=== PATIENT | male | born 1995 | race Caucasian/White ===

== ENCOUNTER 2018-09-21 20:09 | Emergency (ER) | payer OTHER, BC ==
[~2018-09-21] VITALS: Ht 170.2 cm; Wt 59.0 kg
[2018-09-21 21:05] VITALS: BP 135/88
== END 2018-09-21 21:05 | disposition left against medical advice (07) ==
LOC: M.ERS 20:09
DX: S01.111A Laceration without foreign body of right eyelid and periocular area, initial encounter (principal); W18.00XA Striking against unspecified object with subsequent fall, initial encounter; Y93.89 Activity, other specified; Y92.89 Other specified places as the place of occurrence of the external cause; Y99.8 Other external cause status

== ENCOUNTER 2019-10-26 01:21 | Emergency (ER) | payer BC ==
[~2019-10-26] VITALS: Ht 170.2 cm; Wt 61.2 kg
[2019-10-26] MEDS ORDERED: LEXAPRO20 MG PO (01:49)
[2019-10-26] MEDS ORDERED: GABAPENTIN 100100 MG PO (01:50)
[2019-10-26 02:39] VITALS: BP 128/84
== END 2019-10-26 02:40 | disposition home or self-care (01) ==
LOC: M.ERS 01:21
DX: S50.02XA Contusion of left elbow, initial encounter (principal); L02.01 Cutaneous abscess of face; F41.9 Anxiety disorder, unspecified; F32.9 Major depressive disorder, single episode, unspecified; V29.49XA Motorcycle driver injured in collision with other motor vehicles in traffic accident, initial encounter; Y93.89 Activity, other specified; Y92.89 Other specified places as the place of occurrence of the external cause; Y99.8 Other external cause status

== ENCOUNTER 2020-12-29 18:08 | Inpatient (IN) | payer BC ==
[~2020-12-29] VITALS: Ht 175.3 cm; Wt 64.0 kg
[~2020-12-29 18:08] MED LIST: GABAPENTIN 100100 MG PO; LEXAPRO20 MG PO
[2020-12-29 18:36] LABS: ABSOLUTE BASOPHILS 0.1 thou/uL (0.0-0.2); ABSOLUTE EOSINOPHILS 0.2 thou/uL (0.0-0.7); ABSOLUTE LYMPHOCYTES 2.7 thou/uL (0.8-5.3); ABSOLUTE MONOCYTES 0.5 thou/uL (0.0-1.2); BASOPHILS 0.9 %; EOSINOPHILS 2.5 %; HEMATOCRIT 49.3 % (42.0-52.0); HEMOGLOBIN 16.7 gm/dL (14.0-18.0); LYMPHOCYTES 36.5 %; MCH 32.5 pg (26.0-34.0); MCV 95.8 fL (80.0-100.0); MONOCYTES 6.5 %; MPV 6.6 fl. (7.2-11.1); NUCLEATED RBCS 0 /100WBC; PLATELET COUNT* 290 thou/uL (150-400); POLYS 53.6 %; RBC 5.14 mil/uL (4.50-6.00); RDW-CV 13.2 % (10.5-14.5); WBC 7.4 thou/uL (4.0-11.0)
[2020-12-29 18:43] LABS: URINE BILIRUBIN NEGATIVE (Negative); URINE BLOOD 1+ (Negative); URINE CLARITY CLEAR; URINE COLOR YELLOW; URINE GLUCOSE-RANDOM NEGATIVE (Negative); URINE KETONES NEGATIVE (Negative); URINE LEUKOCYTES-REFLEX NEGATIVE (Negative); URINE NITRITE-REFLEX NEGATIVE (Negative); URINE PROTEIN NEGATIVE (Negative); URINE UROBILINOGEN 0.2 E.U./dl (0.2-1.0)
[2020-12-29 18:43] LABS: CALCIUM 8.2 mg/dL (8.5-10.1); CREATININE 1.1 mg/dL (0.6-1.3); POTASSIUM 3.4 mmol/L (3.5-5.1)
[2020-12-29 18:47] LABS: APTT 31.2 Seconds (25.0-31.3); PROTIME 10.7 Seconds (9.20-11.50)
--- NOTE | 2020-12-29 18:49 | NUR ---
INTUBATION PERFORMED WITH SUCCESS AT 1841, WITH RT AND THIS RN AT BEDSIDE.
[2020-12-29 18:54] LABS: AMP/METHAMP Negative (Negative); BARBITURATES Negative (Negative); BENZODIAZEPINES Negative (Negative); COCAINE Negative (Negative); METHADONE Negative (Negative); OPIATES Negative (Negative); PCP Negative (Negative); THC Negative (Negative)
[2020-12-29 18:54] LABS: ALBUMIN 4.5 g/dL (3.4-5.0); TOTAL BILIRUBIN 0.3 mg/dL (<0.1-1.0)
[2020-12-29 18:57] LABS: SALICYLATE < 2.8 mg/dL (2.8-20.0)
[2020-12-29 18:58] LABS: ACETAMINOPHEN < 2 ug/mL (10-30)
[2020-12-29 18:59] LABS: ALCOHOL 596 mg/dL (<10)
[2020-12-29 19:00] LABS: BACTERIA-REFLEX None Seen /HPF (None Seen); CASTS None Seen /LPF (None Seen); CRYSTALS None Seen /LPF (None Seen); MUCUS None Seen strn/LPF (None Seen); SQUAMOUS NONE SEEN /LPF (0-3); URINE RBC 0-2 Rare /HPF (0-2); URINE WBC-REFLEX None Seen /HPF (0-5)
[2020-12-29 19:23] LABS: BE 2.7 mmol/L (-2 to +3); pH 7.424 (7.340-7.450)
[2020-12-29 19:27] LABS: PO2 > 488.8 mmHg (75.0-100.0)
--- NOTE | 2020-12-29 20:10 | NUR ---
PT AT CT NOTED THAT WAS MOVING INCREASED PROPOFOL TO 20 MCG\KG
[2020-12-29 20:30] VITALS: BP 108/77
--- NOTE | 2020-12-29 20:30 | NUR ---
PT TRANSFERRED TO ICU ROOM 6 WITH THIS RN, RT, AND Doris MONTE RN AT BEDSIDE. REPORT GIVEN ANI.
[2020-12-30] VITALS (22 sets, daily range): BP systolic 102–124; BP diastolic 64–82
[2020-12-30 03:51] LABS: ABSOLUTE BASOPHILS 0.1 thou/uL (0.0-0.2); ABSOLUTE EOSINOPHILS 0.2 thou/uL (0.0-0.7); ABSOLUTE LYMPHOCYTES 3.4 thou/uL (0.8-5.3); ABSOLUTE MONOCYTES 0.6 thou/uL (0.0-1.2); BASOPHILS 0.8 %; EOSINOPHILS 1.8 %; HEMATOCRIT 41.7 % (42.0-52.0); LYMPHOCYTES 33.4 %; MCH 32.8 pg (26.0-34.0); MCHC 34.2 g/dL (28.0-37.0); MCV 95.9 fL (80.0-100.0); MONOCYTES 5.7 %; MPV 6.8 fl. (7.2-11.1); NUCLEATED RBCS 0 /100WBC; PLATELET COUNT* 229 thou/uL (150-400); POLYS 58.3 %; RBC 4.35 mil/uL (4.50-6.00); RDW-CV 13.2 % (10.5-14.5); WBC 10.3 thou/uL (4.0-11.0)
[2020-12-30 03:55] LABS: HEMOGLOBIN 14.3 gm/dL (14.0-18.0)
--- NOTE | 2020-12-30 05:45 | NUR ---
ASSUMED PATIENT CARE AT 2030. PATIENT SEDATED, INTUBATED AND IN BILATERAL SOFT RESTRAINTS. RN ASSESSMENTS COMPLETED CHARTED. SPOKE TO MOTHER, SHE IS AWARE OF PATIENT STATUS. NO CHAGES AT THIS TIME. WILL CONTINUE TO MONITOR.
[2020-12-30 08:05] LABS: CALCIUM 7.9 mg/dL (8.5-10.1); CREATININE 0.9 mg/dL (0.6-1.3); MAGNESIUM 2.3 mg/dL (1.8-2.4); POTASSIUM 3.4 mmol/L (3.5-5.1)
--- NOTE | 2020-12-30 09:03 | EKG ---
[place] [address] ELECTROCARDIOGRAM REPORT Name: ISMAEL CONTRERAS Room: [address] IN M.R.#: [id number] Admission: 12/29/20 Attend Phys: Carlos Moy, Discharge: Date of : 89 Date of Service: 12/29/20 1848 Report #: [id number] THIS REPORT FOR: //name// [facility] ED Test Date: 2020-12-29 Test Time: 18:48:57 Pat Name: ISMAEL CONTRERAS Department: Room: [facility] Gender: M Certified Pharmacy Tech: CCD : 1995 Requested By: Marlon Dill Order Number: [id number] MD: George Schneider Measurements Intervals Howard Rate: 98 P: 90 WY: 155 QRS: 108 QRSD: 90 T: 51 QT: 366 QTc: 468 Interpretive Statements Sinus rhythm Borderline right axis deviation Baseline wander in lead(s) V6 No previous ECG available for comparison Electronically Signed On 12-30-2020 9:03:15 RN CCU by George Schneider [email or web address] <ELECTRONICALLY SIGNED> By: George Schneider MD, FACC 12/30/20 0903 1848 1848 George Schneider MD, [facility] /EPI
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
[2020-12-31] VITALS: BP 109/64
[2020-12-31 03:39] LABS: CALCIUM 9.2 mg/dL (8.5-10.1); CREATININE 0.8 mg/dL (0.6-1.3); POTASSIUM 3.3 mmol/L (3.5-5.1); TOTAL BILIRUBIN 1.2 mg/dL (<0.1-1.0); TOTAL PROTEIN 7.1 g/dL (6.4-8.2)
[2020-12-31 04:24] VITALS: BP 103/72
--- NOTE | 2020-12-31 07:37 | NUR ---
ASSUMED PATIENT CARE AT 1900. ASSESSMENT COMPLETED CHARTED. CARDIAC MONITORING IN PLACE. HOURLY ROUNDING IN PLACE FOR PATIENT SAFETY. FALL PRECAUTIONS IN PLACE FOR PATIENT SAFETY. BED LOCKED AND IN LOWEST POSITION.
[2020-12-31 11:53] VITALS: BP 122/98
--- NOTE | 2020-12-31 12:00 | NUR ---
ASSUMED CARE OF PATIENT FROM [facility] [place]. PT ALERT AND ORIENTED. CALM AT THIS TIME. PT HAS A SITTER IN THE ROOM. PT HAS 2 SALINE LOCK IV'S. PT ON RA. RESTING ON LEFT SIDE AT THIS TIME.
[2020-12-31 14:00] VITALS: BP 127/89
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
--- NOTE | 2020-12-31 18:00 | NUR ---
PT REMAINS ALERT AND ORIENTED X 4. PT IS 1:1 WITH SITTER. PT ONLY IN GOWN. SUICIDE PRECAUTIONS IN PLACE. IV'S SALINE LOCKED. PT STAYED IN BED TODAY. PT DID TAKE A SHOWER AND CLEANED SELF. PT DENIES ANY THOUGHTS OF SELF HARM AT THIS TIME. WILL CONTINUE TO MONITOR.
[2020-12-31 20:53] VITALS: BP 137/87
[2021-01-01] VITALS (7 sets, daily range): BP systolic 118–125; BP diastolic 79–87
--- NOTE | 2021-01-01 05:10 | NUR ---
SITTER IN ROOM ALL NIGHT. HE WAS VERY CALM AND QUIET AND DID NOT HAVE ANY REQUESTS FOR ANYTHING ALL SHIFT. DID REFUSE LOVENOX SHOT AT 2100. HE SLEPT WELL THROUGH THE NIGHT WITHOUT INCIDENT.
--- NOTE | 2021-01-01 09:06 | NUR ---
ASSUMED CARE OF PT THIS AM AROUND 07- DIESEL ENGINE FITTER IN PLACE ORDERED, TRACING SR WITH PAC- UPON ASSESSMENT PT NOTED TO BE RESTING IN BED- PT A&O X4- CONT OF B/B- UP AD-TANYA IN ROOM, STEADY GAIT NOTED- SITTER AT SIDE R/T SAFETY- PT DENIES ANY SI THIS AM- LCTA, RESP EVEN AND UN-LABORED- VSS, O2 SAT 98% ON RA- ABD SOFT/FLAT/NON-TENDER, BS X4 QUADS- LAST BM REPORTED 12/31/20- IV NOTED TO LEFT FA INTACT AND SL- D/C PENDING PLACEMENT AT THIS TIME- PT DENIES ANY C/O PAIN/DISCOMFORT AT THIS TIME- CALL LIGHT AND PERSONAL BELONGINGS WITH IN REACH- ALL NEEDS MET AT THIS TIME
--- NOTE | 2021-01-01 15:41 | NUR ---
CM INFORMED BY THE PHYSICIAN OF PLAN TO D/C PATIENT TO INPT PSYCH VOLUNTARILY. CM SPOKE TO THE PT TO DISCUSS THIS AND HE WAS INITIALLY RESISTANT TO TRANSFER TO [facility]. HOWEVER AFTER SPEAKING TO THE PHYSICIAN HE IS NOW IN AGREEMENT WITH THE PLAN. [facility] ACCEPTED THE PT. ACCEPTING PHYSICIAN: DR SIDHU. OMKAR ARRANGED [facility] NON-EMERGENT TRASNPORT FOR THE PT FOR THE NEXT AVAILABLE TRANSPORT. CM INFORMED THE RN IN-CHARGE OF THE PT OF THE PT'S TIME OF TRANSPORT AND WHERE TO CALL REPORT. CM WILL REMAIN AVAILABLE TO ASSIST AND FOLLOW NEEDED. [facility] [id number] REPORT PHONE: [phone] [facility] NON-EMERGENT TRANSPORT PHONE: [phone]
== END 2021-01-01 16:05 | DRG 896 ==
LOC: M.ERS 18:08 → M.ICU 18:39 → M.TBA-ER 18:39 → M.2W 18:39 → M.ICU 20:44 → M.2W 12-31 08:30
PROVIDERS: Family Medicine; Internal Medicine; ADMIT Internal Medicine; ATTEND Internal Medicine
PROC: 0BH17EZ Insertion of Endotracheal Airway into Trachea, Via Natural or Artificial Opening (ICD-10-PCS; principal; 2020-12-29)
PROC: 5A1935Z Respiratory Ventilation, Less than 24 Consecutive Hours (ICD-10-PCS; principal; 2020-12-29)
DX: F10.129 Alcohol abuse with intoxication, unspecified (principal); G92 Toxic encephalopathy; R45.851 Suicidal ideations; F32.9 Major depressive disorder, single episode, unspecified; F41.9 Anxiety disorder, unspecified; Z20.822 Contact with and (suspected) exposure to COVID-19; E86.0 Dehydration; E87.6 Hypokalemia; Z79.899 Other long term (current) drug therapy